=== PATIENT | female | born 1965 | race African-American/Black ===

== ENCOUNTER 2019-04-19 19:16 | Inpatient (IN) | payer MEDICARE, MEDICAID ==
[~2019-04-19] VITALS: Ht 167.6 cm; Wt 72.1 kg
[2019-04-19] MEDS ORDERED: ONDANSETRON HCL 4MG/2ML INJ IV STA (20:34)
[2019-04-19] MEDS ORDERED: MORPHINE SULFATE 4 MG/ML CPJ (NOT FOR IM USE) IV STA (20:34)
[2019-04-19] MEDS ORDERED: FUROSEMIDE 40MG/4ML VIAL IV ONE (20:45)
[2019-04-19] MEDS ORDERED: ASPIRIN 81MG TABLET PO ONE (20:45)
[2019-04-19 20:53] LABS: BASOPHILS % 2.1 % (0.0-2.0); EOSINOPHILS % 2.8 % (0.0-5.0); HEMATOCRIT. 42.1 % (36.0-48.0); HEMOGLOBIN. 13.9 g/dL (12.0-16.0); LYMPHOCYTES % 27.2 % (20.0-50.0); MEAN CORPUSCULAR HEMOGLOBIN 32.3 pg (28.0-32.0); MEAN CORPUSCULAR VOLUME 97.7 fL (81.0-99.0); MEAN PLATELET VOLUME 9.2 fl (7.4-10.4); NEUTROPHILS % 61.9 % (40.0-76.0); PLATELET 240 x1000/uL (130-400); RED CELL DISTRIBUTION WIDTH 14.7 % (11.6-14.6)
[2019-04-19 21:00] LABS: HCG SCREEN NEGATIVE
[2019-04-19 21:01] LABS: CHLORIDE 111 mEq/L (98-107); PARTIAL THROMBOPLASTIN TIME 23.3 sec (23.4-31.0)
[2019-04-19 21:05] LABS: ETHANOL BLOOD < 10 mg/dL
[2019-04-19 22:34] LABS: CLARITY URINE CLEAR (CLEAR); COLOR URINE YELLOW (YELLOW); KETONES URINE NEGATIVE (NEGATIVE); LEUKOCYTE ESTERASE URINE 2+ (NEGATIVE); NITRITE URINE NEGATIVE (NEGATIVE); OCCULT BLOOD URINE NEGATIVE (NEGATIVE); PROTEIN URINE NEGATIVE (NEGATIVE); SPECIFIC GRAVITY URINE 1.005 (1.005-1.030); UROBILINOGEN URINE 0.2 E.U./dL (0.2-1.0)
[2019-04-19 22:43] LABS: *AMPHETAMINES SCREEN URINE NEGATIVE (NEGATIVE); *BARBITURATES SCREEN URINE NEGATIVE (NEGATIVE)
[2019-04-19 22:44] LABS: *BENZODIAZEPINES SCREEN URINE NEGATIVE (NEGATIVE); *COCAINE SCREEN URINE PRESUMTIVE POSITIVE (NEGATIVE); CANNABINOID URINE SCREEN NEGATIVE (NEGATIVE); METHADONE URINE SCREEN NEGATIVE (NEGATIVE); OPIATES URINE SCREEN NEGATIVE (NEGATIVE); PHENCYCLIDINE URINE SCREEN NEGATIVE (NEGATIVE)
[2019-04-20] MEDS ORDERED: CEFTRIAXONE 1 G PREMIX 50 ML IV ONE
[2019-04-20 08:00] VITALS: BP 108/74
[2019-04-20 12:00] VITALS: BP 102/73
[2019-04-20] MEDS ORDERED: ONDANSETRON HCL 4MG/2ML INJ IV PRN (12:30)
[2019-04-20] MEDS ORDERED: ACETAMINOPHEN 325MG TABLET PO PRN (12:30)
[2019-04-20] MEDS: FUROSEMIDE 40MG/4ML VIAL IVP SCH ×2 (13:25→17:42)
[2019-04-20] MEDS: ENOXAPARIN 40MG/0.4ML SYR SUBCUT SCH (13:26)
[2019-04-20 16:00] VITALS: BP 107/79
[2019-04-20] MEDS: IPRATROPIUM/ALBUTEROL 0.5-3(2.5)MG/3ML NEB HHN SCH (19:45)
[2019-04-20] MEDS: BUDESONIDE 0.5MG/2ML NEB HHN SCH (19:45)
[2019-04-20 19:53] VITALS: BP 104/74
[2019-04-20] MEDS: GUAIFENESIN 600MG ER TABLET PO SCH (20:43)
[2019-04-20] MEDS ORDERED: ZOLPIDEM TARTRATE 5MG TABLET PO PRN (21:15)
[2019-04-21] MEDS: CEFTRIAXONE 1 G PREMIX 50 ML IV SCH ×2 (00:07→23:24)
[2019-04-21 00:10] VITALS: BP 112/69
[2019-04-21] MEDS: IPRATROPIUM/ALBUTEROL 0.5-3(2.5)MG/3ML NEB HHN SCH ×3 (02:36→14:09)
[2019-04-21 04:00] VITALS: BP 105/65
[2019-04-21] MEDS: FUROSEMIDE 40MG/4ML VIAL IVP SCH (05:58)
[2019-04-21 06:12] LABS: CHLORIDE 101 mEq/L (98-107)
[2019-04-21 06:32] LABS: BASOPHILS % 0.5 % (0.0-2.0); EOSINOPHILS % 1.3 % (0.0-5.0); HEMATOCRIT. 41.9 % (36.0-48.0); HEMOGLOBIN. 13.9 g/dL (12.0-16.0); MEAN CORPUSCULAR HEMOGLOBIN 31.9 pg (28.0-32.0); MEAN CORPUSCULAR VOLUME 96.5 fL (81.0-99.0); MEAN PLATELET VOLUME 9.1 fl (7.4-10.4); MONOCYTES % 9.2 % (2.0-8.0); PLATELET 236 x1000/uL (130-400); RED BLOOD CELL COUNT 4.35 mill/uL (4.2-5.4)
[2019-04-21 08:00] VITALS: BP 104/64
[2019-04-21] MEDS ORDERED: VANCOMYCIN 1250MG in DEXTROSE 5% WATER 250ML IV NR (08:00)
[2019-04-21] MEDS: BUDESONIDE 0.5MG/2ML NEB HHN SCH (08:10)
[2019-04-21] MEDS: GUAIFENESIN 600MG ER TABLET PO SCH ×2 (09:16→21:23)
[2019-04-21] MEDS: ASPIRIN 81MG TABLET PO SCH (09:16)
[2019-04-21] MEDS ORDERED: POTASSIUM CHLORIDE 20MEQ TABLET SR PO NR (11:30)
[2019-04-21 12:00] VITALS: BP 108/76
[2019-04-21] MEDS: ENOXAPARIN 40MG/0.4ML SYR SUBCUT SCH (15:04)
[2019-04-21] MEDS ORDERED: LORAZEPAM 1MG TABLET PO PRN (15:15)
[2019-04-21 15:48] LABS: HEPATITIS B SURFACE ANTIGEN NEGATIVE
[2019-04-21 16:00] VITALS: BP 101/66
[2019-04-21 16:18] LABS: HEPATITIS A AB IGM NEGATIVE (NEGATIVE)
[2019-04-21] MEDS ORDERED: LORAZEPAM 2MG/ML CPJ IV PRN (17:15)
[2019-04-21] MEDS ORDERED: FLUT1DIS3 INH (18:53)
[2019-04-21] MEDS ORDERED: POTA-79 MT (18:53)
[2019-04-21] MEDS ORDERED: CARV3.1242 MT (18:53)
[2019-04-21] MEDS ORDERED: LOSA25TA26 MT (18:53)
[2019-04-21] MEDS ORDERED: ASPI-1158 MT (18:53)
[2019-04-21] MEDS ORDERED: FURO-151 MT (18:53)
[2019-04-21] MEDS ORDERED: ALBU18HF2 IH (18:53)
[2019-04-21 20:00] VITALS: BP 120/84
[2019-04-21] MEDS: VANCOMYCIN 1 G PREMIX 200 ML IV SCH (21:23)
[2019-04-22 00:05] VITALS: BP 118/71
[2019-04-22 04:00] VITALS: BP 102/67
[2019-04-22 08:00] VITALS: BP 99/71
[2019-04-22 08:01] LABS: CHLORIDE 102 mEq/L (98-107)
[2019-04-22] MEDS: IPRATROPIUM/ALBUTEROL 0.5-3(2.5)MG/3ML NEB HHN SCH ×2 (08:50→12:53)
[2019-04-22] MEDS: BUDESONIDE 0.5MG/2ML NEB HHN SCH (08:50)
[2019-04-22] MEDS: VANCOMYCIN 1 G PREMIX 200 ML IV SCH (08:58)
[2019-04-22] MEDS: GUAIFENESIN 600MG ER TABLET PO SCH (09:07)
[2019-04-22] MEDS: ASPIRIN 81MG TABLET PO SCH (09:07)
[2019-04-22 09:30] VITALS: BP 99/71
[2019-04-22 12:00] VITALS: BP 100/70
[2019-04-22] MEDS: ENOXAPARIN 40MG/0.4ML SYR SUBCUT SCH (13:12)
[2019-04-22 16:00] VITALS: BP 121/57
[2019-04-22] MEDS ORDERED: DIGOXIN 125MCG TABLET PO SCH (18:00)
[2019-04-22] MEDS ORDERED: ATORVASTATIN CALCIUM 10MG TABLET PO SCH (21:00)
[2019-04-22] MEDS ORDERED: CARVEDILOL 3.125 MG TABLET PO SCH (21:00)
== END 2019-04-22 17:24 | disposition home or self-care (01) | DRG 871 ==
LOC: ER 19:16 → 7WST 04-20 00:46 → EDBEDREQTM 04-20 00:51 → EDBEDREQ 04-20 00:51 → ENRESERV 04-20 05:32
PROVIDERS: ADMIT Internal Medicine; ATTEND Internal Medicine
DX: A41.9 Sepsis, unspecified organism (principal); J96.00 Acute respiratory failure, unspecified whether with hypoxia or hypercapnia; I50.21 Acute systolic (congestive) heart failure; J68.0 Bronchitis and pneumonitis due to chemicals, gases, fumes and vapors; E44.1 Mild protein-calorie malnutrition; N39.0 Urinary tract infection, site not specified; I42.9 Cardiomyopathy, unspecified; J44.1 Chronic obstructive pulmonary disease with (acute) exacerbation; R74.0 Nonspecific elevation of levels of transaminase and lactic acid dehydrogenase [LDH]; R07.89 Other chest pain; E87.8 Other disorders of electrolyte and fluid balance, not elsewhere classified; F17.210 Nicotine dependence, cigarettes, uncomplicated; F14.10 Cocaine abuse, uncomplicated; R07.9 Chest pain, unspecified; F12.90 Cannabis use, unspecified, uncomplicated; T40.5X1A Poisoning by cocaine, accidental (unintentional), initial encounter; Y92.89 Other specified places as the place of occurrence of the external cause; Z71.6 Tobacco abuse counseling; Z68.25 Body mass index [BMI] 25.0-25.9, adult; Z71.51 Drug abuse counseling and surveillance of drug abuser
CPT/HCPCS: 36415; 71045; 80048; 80053; 80061; 80305; 80320; 81003; 83036; 83880; 84443; 84484; 84550; 84703; 85025; 86705; 86709; 86803; 87340; 93005; 93306; 93970; 94640; 96374; 99285; J0696; J1650; J1940; J2060; J2270; J2405; J3370; J7060; J7626; G0480

== ENCOUNTER 2021-02-17 14:17 | Emergency (ER) | payer OTHER, MEDICAID ==
[~2021-02-17] VITALS: Ht 167.6 cm; Wt 73.0 kg
[~2021-02-17 14:17] MED LIST: ALBU18HF2 IH; ASPI-1406 MT; CARV3.1242 MT; FLUT1DIS3 INH; FURO-151 MT; LOSA25TA26 MT; POTA-79 MT
[2021-02-17 14:20] VITALS: BP 117/81
== END 2021-02-17 19:03 | disposition left against medical advice (07) ==
LOC: ER 14:17
DX: R00.2 Palpitations (principal); R06.02 Shortness of breath; I11.0 Hypertensive heart disease with heart failure; I50.9 Heart failure, unspecified; F41.9 Anxiety disorder, unspecified; Z90.710 Acquired absence of both cervix and uterus
CPT/HCPCS: 71045; 93005; 99283